=== PATIENT | female | born 1945 | race Caucasian/White ===

== ENCOUNTER 2018-07-29 12:31 | Emergency (ER) | payer OTHER, MEDICARE ==
[2018-07-29 14:08] LABS: Absolute Lymphocytes (CBC) 1.3 K/uL (0.7-4.9); Absolute Monocytes 0.4 K/uL (0.1-1.3); Absolute Neutrophil 7.1 K/uL (1.8-8.0); Basophils % 0.6 % (0-1.3); Eosinophils % 1.6 % (0-4.4); Hematocrit 36.5 % (36.0-45.0); Lymphocytes % 14.2 % (15.3-44.8); MPV 9.1 fL (7.6-11.3); Monocytes % 4.7 % (3.3-12.3); RBC Red Blood Cell Count 4.06 M/uL (3.86-4.86)
[2018-07-29 14:22] LABS: Potassium 3.8 mmol/L (3.5-5.1)
--- NOTE | 2018-07-29 14:25 | RAD REPORT ---
EXAM DESCRIPTION: RAD - Foot Left 3 View - 07/29/2018 1:45 pm CLINICAL HISTORY: Left Foot pain status post fall FINDINGS: No fracture or dislocation is seen. Large calcaneal spurs are present
--- NOTE | 2018-07-29 15:48 | RAD REPORT ---
EXAM DESCRIPTION: CT - Head C Spine Cap Lowell Bai - 07/29/2018 2:49 pm CLINICAL HISTORY: Trauma, head and neck injury. Chest, abdomen and pelvis pain. Headache;Lower back pain COMPARISON: No comparisons TECHNIQUE: CT head without contrast. CT cervical spine without contrast with coronal and sagittal reformatted images. CT chest, abdomen and pelvis with IV contrast (approximately 100 mL nonionic IV contrast) with luevano l and sagittal reformatted images of the spine. All CT scans are performed using dose optimization technique as appropriate and may include automated exposure control or mA/KV adjustment according to patient size. FINDINGS: CT HEAD WITHOUT CONTRAST: No intracranial hemorrhage, hydrocephalus or extra-axial fluid collection. Mild generalized brain atr ophy. No areas of brain edema or midline shift. The paranasal sinuses and mastoids are clear. The calvarium is intact. CT CERVICAL SPINE WITHOUT CONTRAST: No fracture or subluxation. The prevertebral soft tissues are normal in thickness. CT CHEST, ABDOMEN, PELVIS WITH CONTRAST: The lungs are clear.No pneumothorax or pericardial/pleural fluid. No evidence of intra-abdominal visceral injury, free fluid or free air. Cholecystectomy clips. Sigmoid diverticulosis coli without diverticulitis. No fractures. Lumbar degenerative changes are present. Mild degenerative anterolisthesis of L4 on 5. IMPRESSION: Negative for acute traumatic findings.
[2018-07-29] MEDS ORDERED: KETOROLAC 30 MG/ML INJ ONE (15:49)
--- NOTE | 2018-07-29 15:56 | EDPHYS ---
Physician Documentation [facility] Name: Kary Lance Age: 73 yrs Sex: Female : 1945 Arrival Date: 07/29/2018 Time: 12:33 Bed 28 Private MD: Delio Fernandez V ED Physician Nazario Burnett HPI: 07/29 13:54 This 73 yrs old Female presents to ER via Wheelchair with complaints of Left pm1 Foot Injury. 13:54 The patient presents with pain, swelling. The complaints affect the dorsum of left pm1 foot. Context: The problem was sustained at home, resulted from the patient falling, ladder, the patient can fully bear weight, the patient is able to ambulate, Problem is a result from a previous injury: No. Onset: The symptoms/episode began/occurred this morning. Modifying factors: The symptoms are alleviated by elevating leg, the symptoms are aggravated by weight bearing. Associated signs and symptoms: Pertinent positives: swelling, of the dorsum of left foot, Pertinent negatives calf tenderness. Treatment prior to arrival includes: no previous treatment. Severity of symptoms: in the emergency department the symptoms are actually worse. The patient has not experienced similar symptoms in the past. The patient has not recently seen a physician. Patient was coming down a ladder and she was about 4 feet off the ground. The ladder moved and she fell, landing flat on her back on wooden floor in the house. Patient with pain to back of head and low back. Her main complaint is swelling and pain to left foot. No LOC, No neck pain. patient was able to walk after the fall. However throughout the day the pain and swelling to her left foot got worse. Historical: - Allergies: 13:09 No Known Allergies; aj1 - Home Meds: 13:15 amitriptyline 10 mg Oral tab [Active]; levothyroxine 125 mcg tab 1 tab once daily ca1 [Active]; oxybutynin chloride 10mg ER Oral tab 1 tab once daily [Active]; Metoprolol ER 50mg [Active]; atorvastatin 10 mg oral tab [Active]; colestipol 1 gram oral tab [Active]; losartan-hydrochlorothiazide 100-25 mg oral tab [Active]; naltrexone oral oral [Active]; - PMHx: 13:09 High Cholesterol; Hypertension; overactive bladder; aj1 - PSHx: 13:15 Heart stents; ca1 - Immunization history:: Flu vaccine is up to date. - Social history:: Smoking status: Patient/guardian denies using tobacco. - Ebola Screening: : Patient denies travel to an Ebola-affected area in the 21 days before illness onset. ROS: 13:54 Constitutional: Negative for fever, chills, and weight loss, Eyes: Negative for injury, pm1 pain, redness, and discharge, ENT: Negative for injury, pain, and discharge, Neck: Negative for injury, pain, and swelling, Cardiovascular: Negative for chest pain, palpitations, and edema, Respiratory: Negative for shortness of breath, cough, wheezing, and pleuritic chest pain, Abdomen/GI: Negative for abdominal pain, nausea, vomiting, diarrhea, and constipation, : Negative for injury, bleeding, discharge, and swelling, Skin: Negative for injury, rash, and discoloration. 13:54 Back: Positive for of the low back area, pain. 13:54 MS/extremity: Positive for pain, swelling, of the dorsum of left foot. 13:54 Neuro: Positive for headache, Negative for loss of consciousness. Exam: 13:54 Constitutional: This is a well developed, well nourished patient who is awake, alert, pm1 and in no acute distress. Head/Face: Normocephalic, atraumatic. Eyes: Pupils equal round and reactive to light, extra-ocular motions intact. Lids and lashes normal. Conjunctiva and sclera are non-icteric and not injected. Cornea within normal limits. Periorbital areas with no swelling, redness, or edema. ENT: Nares patent. No nasal discharge, no septal abnormalities noted. Tympanic membranes are normal and external auditory canals are clear. Oropharynx with no redness, swelling, or masses, exudates, or evidence of obstruction, uvula midline. Mucous membranes moist. Neck: Trachea midline, no thyromegaly or masses palpated, and no cervical lymphadenopathy. Supple, full range of motion without nuchal rigidity, or vertebral point tenderness. No Meningismus. Chest/axilla: Normal chest wall appearance and motion. Nontender with no deformity. No lesions are appreciated. Cardiovascular: Regular rate and rhythm with a normal S1 and S2. No gallops, murmurs, or rubs. Normal PMI, no JVD. No pulse deficits. Respiratory: Lungs have equal breath sounds bilaterally, clear to auscultation and percussion. No rales, rhonchi or wheezes noted. No increased work of breathing, no retractions or nasal flaring. Abdomen/GI: Soft, non-tender, with normal bowel sounds. No distension or tympany. No guarding or rebound. No evidence of tenderness throughout. Back: No spinal tenderness. No costovertebral tenderness. Full range of motion. No tenderness to whole back with palpation Skin: Warm, dry with normal turgor. Normal color with no rashes, no lesions, and no evidence of cellulitis. 13:54 Musculoskeletal/extremity: Extremities: grossly normal except: noted in the dorsum of left foot: ecchymosis, swelling, tenderness. Vital Signs: 13:09 BP 149 / 49; Pulse 68; Resp 18; Temp 97.6; Pulse Ox 97% on R/A; Weight 99.79 kg (R); aj1 Height 5 ft. 2 in. (157.48 cm) (R); 14:15 BP 153 / 67; Pulse 64; Resp 18 S; Pulse Ox 100% on R/A; ca1 15:25 BP 208 / 75; Pulse 65; Resp 19 S; Pulse Ox 98% on R/A; ca1 16:00 BP 198 / 96; Pulse 66; Resp 18 S; Pulse Ox 99% on R/A; ca1 16:43 BP 116 / 69; Pulse 67; Resp 18 S; Pulse Ox 97% on R/A; ca1 13:09 Body Mass Index 40.24 (99.79 kg, 157.48 cm) [facility] MDM: 13:32 Patient medically screened. pm1 13:35 ED course: Patient was 4 foot off the ground and landed on her back and hit her head on pm1 a wooden floor. Patient's main complaint is her left foot but possible distracting injury, therefore I will order CT traumagram. 13:36 ED course: Patient refused pain medications. pm1 15:53 Data reviewed: vital signs. Data interpreted: Pulse oximetry: on room air is 98 %. pm1 Interpretation: normal. Counseling: I had a detailed discussion with the patient and/or guardian regarding: the historical points, exam findings, and any diagnostic results supporting the discharge/admit diagnosis, lab results, radiology results, the need for outpatient follow up, to return to the emergency department if symptoms worsen or persist or if there are any questions or concerns that arise at home. 07/29 13:32 Order name: Basic Metabolic Panel; Complete Time: 14:25 pm1 07/29 13:32 Order name: CBC with Diff; Complete Time: 14:09 pm1 07/29 13:32 Order name: Foot Left 3 View XRAY; Complete Time: 14:27 pm1 07/29 13:32 Order name: CT Traumagram (Head C Spine CAP W Con); Complete Time: 15:52 pm1 07/29 13:32 Order name: Creatinine for Radiology; Complete Time: 14:25 pm1 07/29 13:32 Order name: Type And Screen; Complete Time: 14:56 pm1 07/29 13:32 Order name: Ice pack; Complete Time: 14:01 pm1 07/29 13:32 Order name: Labs collected and sent; Complete Time: 13:59 pm1 07/29 15:36 Order name: Walking boot; Complete Time: 15:40 pm1 Administered Medications: 15:37 Drug: TORadol 30 mg Route: IM; Site: left deltoid; ca1 16:15 Drug: [place] 10 mg-325 mg 1 tabs Route: PO; ca1 Disposition: 07/29/18 15:54 Discharged to Home. Impression: Contusion of left foot, Superficial injury of head, Low back pain. - Condition is Stable. - Discharge Instructions: Back Pain, Adult, Foot Contusion, Head Injury, Adult, How to Use a Walker, Walking Boot. - Prescriptions for Tramadol 50 mg Oral Tablet - take 1 tablet by ORAL route every 8 hours as needed; 15 tablet. - Work release form, Medication Reconciliation Form, Thank You Letter, Antibiotic Education, Prescription Opioid Use form. - Follow up: Emergency Department; When: As needed; Reason: Worsening of condition. Follow up: Private Physician; When: 2 - 3 days; Reason: Recheck today's complaints, Continuance of care, Re-evaluation by your physician. - Problem is new. - Symptoms have improved. Addendum: 08/03/2018 10:34 Co-signature as Attending Physician, Nazario Burnett MD I agree with the assessment and k dr plan of care. Signatures: Dispatcher [employer] EDKimberly Gotti RN RN aj1 Nazario Burnett MD MD kdr Miguel Ledesma NP [employer]ENDER HELPER pm1 Michelle Weiss RN RN ca1 Corrections: (The following items were deleted from the chart) 07/29 16:57 15:54 07/29/2018 15:54 Discharged to Home. Impression: Contusion of left foot; ca1 Superficial injury of head; Low back pain. Condition is Stable. Forms are Medication Reconciliation Form, Thank You Letter, Antibiotic Education, Prescription Opioid Use. Follow up: Emergency Department; When: As needed; Reason: Worsening of condition. Follow up: Private Physician; When: 2 - 3 days; Reason: Recheck today's complaints, Continuance of care, Re-evaluation by your physician. Problem is new. Symptoms have improved. pm1
--- NOTE | 2018-07-29 15:56 | ER ---
Nurse's Notes [facility] Name: Kary Lance Age: 73 yrs Sex: Female : 1945 Arrival Date: 07/29/2018 Time: 12:33 Bed 28 Private MD: Delio Fernandez V Diagnosis: Contusion of left foot;Superficial injury of head;Low back pain Presentation: 07/29 13:07 Presenting complaint: Patient states: "I fell off a ladder and landed on my back and aj1 now my left foot hurts and it swollen" Patient reports that she fell approximately 6 ft, but denies back pain. Reports that her main concern is her foot. Denies LOC, vomiting. Transition of care: patient was not received from another setting of care. Onset of symptoms was July 29, 2018 at 11:30. Risk Assessment: Do you want to hurt yourself or someone else? Patient reports no desire to harm self or others. Initial Sepsis Screen: Does the patient meet any 2 criteria? No. Patient's initial sepsis screen is negative. Does the patient have a suspected source of infection? No. Patient's initial sepsis screen is negative. Care prior to arrival: None. 13:07 Method Of Arrival: Wheelchair aj1 13:07 Acuity: LEE 3 aj1 Triage Assessment: 13:09 General: Appears in no apparent distress. uncomfortable, Behavior is calm, cooperative, aj1 appropriate for age. Pain: Complains of pain in left foot Pain currently is 9 out of 10 on a pain scale. Neuro: Level of Consciousness is awake, alert, obeys commands, Oriented to person, place, time, situation. Derm: Bruising that is dark purple, on left foot. Musculoskeletal: Range of motion: limited in left ankle Swelling present in left foot. 13:09 Injury Description: Bruise sustained to left ankle and left foot is green, was ca1 sustained 30-60 minutes ago. Historical: - Allergies: 13:09 No Known Allergies; aj1 - Home Meds: 13:15 amitriptyline 10 mg Oral tab [Active]; levothyroxine 125 mcg tab 1 tab once daily ca1 [Active]; oxybutynin chloride 10mg ER Oral tab 1 tab once daily [Active]; Metoprolol ER 50mg [Active]; atorvastatin 10 mg oral tab [Active]; colestipol 1 gram oral tab [Active]; losartan-hydrochlorothiazide 100-25 mg oral tab [Active]; naltrexone oral oral [Active]; - PMHx: 13:09 High Cholesterol; Hypertension; overactive bladder; aj1 - PSHx: 13:15 Heart stents; ca1 - Immunization history:: Flu vaccine is up to date. - Social history:: Smoking status: Patient/guardian denies using tobacco. - Ebola Screening: : Patient denies travel to an Ebola-affected area in the 21 days before illness onset. Screenin:16 Abuse screen: Denies threats or abuse. Denies injuries from another. Nutritional ca1 screening: No deficits noted. Tuberculosis screening: No symptoms or risk factors identified. Fall Risk Fall in past 12 months (25 points). IV access (20 points). Assessment: 13:16 General: Appears in no apparent distress. comfortable, Behavior is calm, cooperative, ca1 appropriate for age. Pain: Complains of pain in left ankle and left foot Pain does not radiate. Pain currently is 10 out of 10 on a pain scale. Pain began 1 hour ago. Neuro: Level of Consciousness is awake, alert, obeys commands, Oriented to person, place, time, situation. Cardiovascular: Heart tones S1 S2 present Capillary refill < 3 seconds Patient's skin is warm and dry. Respiratory: Airway is patent Respiratory effort is even, unlabored, Respiratory pattern is regular, symmetrical, Breath sounds are clear bilaterally. GI: Abdomen is round non-distended, Bowel sounds present X 4 quads. Abd is soft and non tender X 4 quads. : No deficits noted. No signs and/or symptoms were reported regarding the genitourinary system. EENT: No deficits noted. No signs and/or symptoms were reported regarding the EENT system. Derm: Skin is intact, is healthy with good turgor, Skin is pink, warm \\T\\ dry. Bruising that is dark purple, on left foot. Musculoskeletal: Circulation, motion, and sensation intact. Capillary refill < 3 seconds, Swelling present in left foot. 14:15 Reassessment: Patient appears in no apparent distress at this time. Patient and/or ca1 family updated on plan of care and expected duration. Pain level reassessed. Patient is alert, oriented x 3, equal unlabored respirations, skin warm/dry/pink. 15:21 Reassessment: Patient appears in no apparent distress at this time. Patient and/or ca1 family updated on plan of care and expected duration. Pain level reassessed. Patient is alert, oriented x 3, equal unlabored respirations, skin warm/dry/pink. 15:45 Reassessment: Pt ambulated to the restroom with the walking boot and a walker. Pt ca1 tolerated procedure well. 16:08 Reassessment: Patient appears in no apparent distress at this time. Patient is alert, ca1 oriented x 3, equal unlabored respirations, skin warm/dry/pink. Pt blood pressure is elevated. Pt still in pain at 10/10 on pain scale. Notified Provider. 16:08 Reassessment: Provider at bedside to discuss pain management options on narcotic ca1 analgesics or non-narcotics. 16:43 Reassessment: Patient appears in no apparent distress at this time. Patient is alert, ca1 oriented x 3, equal unlabored respirations, skin warm/dry/pink. Patient states feeling better. Vital Signs: 13:09 BP 149 / 49; Pulse 68; Resp 18; Temp 97.6; Pulse Ox 97% on R/A; Weight 99.79 kg (R); aj1 Height 5 ft. 2 in. (157.48 cm) (R); 14:15 BP 153 / 67; Pulse 64; Resp 18 S; Pulse Ox 100% on R/A; ca1 15:25 BP 208 / 75; Pulse 65; Resp 19 S; Pulse Ox 98% on R/A; ca1 16:00 BP 198 / 96; Pulse 66; Resp 18 S; Pulse Ox 99% on R/A; ca1 16:43 BP 116 / 69; Pulse 67; Resp 18 S; Pulse Ox 97% on R/A; ca1 13:09 Body Mass Index 40.24 (99.79 kg, 157.48 cm) aj1 ED Course: 12:33 Patient arrived in ED. as 12:33 Delio Fernandez MD is Private Physician. as 13:09 Triage completed. aj1 13:09 Arm band placed on. aj1 13:14 Miguel Ledesma NP is PHCP. pm1 13:14 Nazario Burnett MD is Attending Physician. pm1 13:16 Patient has correct armband on for positive identification. Placed in gown. Bed in low ca1 position. Call light in reach. Side rails up X 1. Pulse ox on. NIBP on. Warm blanket given. 13:46 Foot Left 3 View XRAY In Process Unspecified. EDMS 13:59 Initial lab(s) drawn, by me, sent to lab. Inserted saline lock: 20 gauge in left lt1 antecubital area, using aseptic technique. 14:04 Basic Metabolic Panel Sent. lt1 14:04 CBC with Diff Sent. lt1 14:11 Michelle Weiss, RN is Primary Nurse. ca1 14:42 CT completed. Patient tolerated procedure well. Patient moved to CT via stretcher. jg6 Patient moved back from CT. 14:49 CT Traumagram (Head C Spine CAP W Con) In Process Unspecified. EDMS 15:45 walking boot by Arianna Wiggins [facility]. ca1 16:50 IV discontinued, intact, bleeding controlled, No redness/swelling at site. Pressure ca1 dressing applied. 16:56 No provider procedures requiring assistance completed. ca1 Administered Medications: 15:37 Drug: TORadol 30 mg Route: IM; Site: left deltoid; ca1 16:15 Drug: [place] 10 mg-325 mg 1 tabs Route: PO; ca1 Outcome: 15:54 Discharge ordered by MD. pm1 16:55 Discharged to home via wheelchair. ca1 16:55 Discharged to home via wheelchair, with significant other. 16:55 Condition: stable 16:55 Discharge instructions given to patient, Instructed on discharge instructions, follow up and referral plans. medication usage, Demonstrated understanding of instructions, follow-up care, medications, Prescriptions given X 1. 16:57 Patient left the ED. ca1 Signatures: Dispatcher [employer] EDMS Kimberly Michel, RN RN Renée Meyer Patrick, [employer] H[employer]ER pm1 Katia Bañuelos jg6 Michelle Weiss, RN RN ca1 Arianna Gómez ltKaleigh
[2018-07-29] MEDS ORDERED: HYDROCODONE/APAP 10/325 TAB ONE (16:27)
[2018-07-29 17:56] VITALS: TEMP 97.6
[2018-07-29 18:01] VITALS: BP 116/69; O2SAT 97
== END 2018-07-29 16:57 | disposition home or self-care (01) ==
LOC: ER 12:31
DX: S90.32XA Contusion of left foot, initial encounter (principal); S00.90XA Unspecified superficial injury of unspecified part of head, initial encounter; W11.XXXA Fall on and from ladder, initial encounter; M54.5 Low back pain; I10 Essential (primary) hypertension; E78.00 Pure hypercholesterolemia, unspecified
CPT/HCPCS: 85025; 80048; 36415; 86900; 86850; 86901; 70450; 72125; 71260; 74177; 73630; 96372; 99285; Q9967

== ENCOUNTER 2018-11-17 11:06 | Emergency (ER) | payer OTHER, MEDICARE ==
--- NOTE | 2018-11-17 12:55 | RAD REPORT ---
EXAM DESCRIPTION: CT - Head Brain Wo Cont - 11/17/2018 12:39 pm CLINICAL HISTORY: Headache COMPARISON: July 2018 TECHNIQUE: Computed axial tomography of the head was obtained. IV contrast was not requested. All CT scans are performed using dose optimization technique as appropriate and may include automated exposure control or mA/KV adjustment according to patient size. FINDINGS: An intracranial bleed is not seen . The ventricles are normal in caliber. No extra-axial fluid collection is noted. Fluid within the sinuses/ mastoids is not seen. IMPRESSION: No acute intracranial abnormality is seen. If patient's symptoms persist MRI of the bra in would be recommended.
[2018-11-17 13:29] LABS: Absolute Lymphocytes (CBC) 2.1 K/uL (0.7-4.9); Basophils % 0.9 % (0-1.3); Hematocrit 37.9 % (36.0-45.0); Lymphocytes % 36.4 % (15.3-44.8); MPV 9.9 fL (7.6-11.3); RBC Red Blood Cell Count 4.26 M/uL (3.86-4.86)
--- NOTE | 2018-11-17 16:25 | RAD REPORT ---
EXAM DESCRIPTION: USCarotid Artery Bilateral11/17/2018 3:36 pm CLINICAL HISTORY: Headache/numbness COMPARISON: None FINDINGS: The velocity of the right internal carotid artery equals 148 cm/sec. The right ICA/CCA rat io 3.1 The velocity of the left internal carotid artery equals 154 cm/sec. The left ICA/CCA ratio 2.7 Mild plaque is present within the carotid arteries. Internal carotid arteries are tortuous The vertebral arteries demonstrate antegrade flow IMPRESSION: Mild plaque within the carotid arteries without evidence of a hemodynamically significan t stenosis Tortuous internal carotid arteries NASCET criteria used. Mild 0-49% stenosis Moderate 50-69% stenosis Severe 70-99% stenosis
--- NOTE | 2018-11-17 16:47 | ER ---
Nurse's Notes [facility] Name: Kary Lance Age: 73 yrs Sex: Female : 1945 Arrival Date: 11/17/2018 Time: 11:08 Bed 5 Private MD: Delio Fernandez V Diagnosis: Headache Presentation: 11/17 11:16 Presenting complaint: Headache on top of head and behind both eyes upon waking today. hb Pt reports frequent headaches since fall from ladder 4 months ago. Denies weakness/numbness/dizziness. VAN Negative. Transition of care: patient was not received from another setting of care. 11:16 Method Of Arrival: Ambulatory hb 11:16 Acuity: LEE 3 hb 11:18 Onset of symptoms was November 17, 2018. Risk Assessment: Do you want to hurt yourself or hb someone else? Patient reports no desire to harm self or others. Initial Sepsis Screen: Does the patient meet any 2 criteria? No. Patient's initial sepsis screen is negative. Does the patient have a suspected source of infection? No. Patient's initial sepsis screen is negative. 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 Historical: - Allergies: 11:20 No Known Allergies; hb - PMHx: 14:35 High Cholesterol; Hypertension; overactive bladder; sg - PSHx: 14:35 Heart stents; sg - Immunization history:: Adult Immunizations up to date. - Social history:: Smoking status: Patient/guardian denies using tobacco. - Ebola Screening: : No symptoms or risks identified at this time. Screenin:55 Abuse screen: Denies threats or abuse. Denies injuries from another. Nutritional sg screening: No deficits noted. Tuberculosis screening: No symptoms or risk factors identified. Never had TB. Fall Risk None identified. Assessment: 11:55 General: Appears in no apparent distress. well groomed, well developed, well nourished. sg Pain: Complains of pain in head, right eye and left eye Quality of pain is described as aching, throbbing. 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 Speech is normal, Facial symmetry appears normal. Cardiovascular: Capillary refill is brisk in bilateral fingers Patient's skin is warm and dry. Chest pain is denied. Respiratory: Airway is patent Respiratory effort is even, unlabored, Respiratory pattern is regular, symmetrical. GI: No deficits noted. Abdomen is round non-distended. : No signs and/or symptoms were reported regarding the genitourinary system. EENT: Sclera/Cornea are clear in right eye and left eye Nares are clear bilaterally Oral mucosa is moist. Throat is clear. Derm: Skin is pink, warm \T\ dry. Musculoskeletal: Circulation, motion, and sensation intact. Range of motion: intact in all extremities. 14:34 Reassessment: pt remains off the unit in ultrasound at this time, will continue to sg monitor. Vital Signs: 11:18 BP 127 / 67; Pulse 48; Resp 16; Temp 97.8; Pulse Ox 100% on R/A; Weight 95.25 kg; hb Height 5 ft. 3 in. (160.02 cm); Pain 5/10; 11:18 Body Mass Index 37.20 (95.25 kg, 160.02 cm) hb ED Course: 11:08 Patient arrived in ED. as 11:09 Delio Fernandez MD is Private Physician. as 11:17 Triage completed. hb 11:20 Arm band placed on. hb 11:55 Patient has correct armband on for positive identification. Bed in low position. Call sg light in reach. Pulse ox on. NIBP on. Warm blanket given. Head of bed elevated. 11:55 No provider procedures requiring assistance completed. sg 11:57 Nazario Burnett MD is Attending Physician. kdr 12:41 CT Head Brain wo Cont In Process Unspecified. EDMS 13:00 Initial lab(s) drawn, by me, sent to lab. Inserted saline lock: 22 gauge in left sg antecubital area, using aseptic technique. Blood collected. 13:43 Zana Wan, MORENO is Primary Nurse. sg 15:09 Carotid Artery Bilateral US In Process Unspecified. EDMS 16:46 Delio Fernandez MD is Referral Physician. kdr Administered Medications: No medications were administered Outcome: 16:46 Discharge ordered by . kdr 16:54 Discharged to home ambulatory, with family. hb 16:54 Condition: stable 16:54 Discharge instructions given to patient, Instructed on discharge instructions, follow up and referral plans. medication usage, Demonstrated understanding of instructions, follow-up care, medications, Prescriptions given X 2. 16:56 Patient left the ED. hb 17:10 Patient left the ED. hb Signatures: Dispatcher [employer] EDMS Zana Wan RN RN Nazario Burnett MD MD kdr Martinez, Amelia as Baxter, Heather, RN RN Corrections: (The following items were deleted from the chart) 11:17 11:16 Presenting complaint: Headache on top of head and behind both eyes upon waking hb today. Pt reports frequent headaches since fall from ladder 3 weeks ago. hb 11:19 11:16 Presenting complaint: Headache on top of head and behind both eyes upon waking hb today. Pt reports frequent headaches since fall from ladder 4 months ago. hb 11:19 11:18 Care prior to arrival: None. hb hb 14:55 11:55 Patient did not have IV access during this emergency room visit. sg sg
--- NOTE | 2018-11-17 16:47 | EDPHYS ---
Physician Documentation [facility] Name: Kary Lance Age: 73 yrs Sex: Female : 1945 Arrival Date: 11/17/2018 Time: 11:08 Bed 5 Private MD: Delio Fernandez V ED Physician Nazario Burnett HPI: 11/17 16:47 This 73 yrs old Female presents to ER via Ambulatory with complaints of Eye kdr Pain, Headache. 16:47 The patient is experiencing Intermittent Headache and "squiggly" line in vision. Onset: kdr The symptoms/episode began/occurred suddenly, 4 month(s) ago. Duration: the symptoms are intermittent, last a few minutes. Aggravated by nothing. Alleviated by nothing. Associated signs and symptoms: Pertinent positives: Apparent scotomas . Patient wears glasses. Severity of symptoms: At their worst the symptoms were mild in the emergency department the symptoms have resolved. The patient has experienced similar episodes in the past, multiple times. The patient has not recently seen a physician. Historical: - Allergies: 11:20 No Known Allergies; hb - PMHx: 14:35 High Cholesterol; Hypertension; overactive bladder; sg - PSHx: 14:35 Heart stents; sg - Immunization history:: Adult Immunizations up to date. - Social history:: Smoking status: Patient/guardian denies using tobacco. - Ebola Screening: : No symptoms or risks identified at this time. ROS: 16:47 Constitutional: Negative for fever, chills, and weight loss, Eyes: Negative for injury, kdr pain, redness, and discharge, ENT: Negative for injury, pain, and discharge, Neck: Negative for injury, pain, and swelling, Cardiovascular: Negative for chest pain, palpitations, and edema, Respiratory: Negative for shortness of breath, cough, wheezing, and pleuritic chest pain, Abdomen/GI: Negative for abdominal pain, nausea, vomiting, diarrhea, and constipation, Back: Negative for injury and pain, : Negative for injury, bleeding, discharge, and swelling, MS/Extremity: Negative for injury and deformity, Skin: Negative for injury, rash, and discoloration, Psych: Negative for depression, anxiety, suicide ideation, homicidal ideation, and hallucinations, Allergy/Immunology: Negative for hives, rash, and allergies, Endocrine: Negative for neck swelling, polydipsia, polyuria, polyphagia, and marked weight changes. 16:47 Neuro: Positive for headache, visual changes, Negative for altered mental status, dizziness, gait disturbance, seizure activity, speech changes, syncope, near syncope, tingling, tinnitus, tremor, visual changes. Exam: 16:47 Constitutional: This is a well developed, well nourished patient who is awake, alert, kdr and in no acute distress. Head/Face: Normocephalic, atraumatic. Eyes: Pupils equal round and reactive to light, extra-ocular motions intact. Lids and lashes normal. Conjunctiva and sclera are non-icteric and not injected. Cornea within normal limits. Periorbital areas with no swelling, redness, or edema. Neck: Trachea midline, no thyromegaly or masses palpated, and no cervical lymphadenopathy. Supple, full range of motion without nuchal rigidity, or vertebral point tenderness. No Meningismus. Chest/axilla: Normal chest wall appearance and motion. Nontender with no deformity. No lesions are appreciated. Cardiovascular: Regular rate and rhythm with a normal S1 and S2. No gallops, murmurs, or rubs. Normal PMI, no JVD. No pulse deficits. Respiratory: Lungs have equal breath sounds bilaterally, clear to auscultation and percussion. No rales, rhonchi or wheezes noted. No increased work of breathing, no retractions or nasal flaring. Abdomen/GI: Soft, non-tender, with normal bowel sounds. No distension or tympany. No guarding or rebound. No evidence of tenderness throughout. Back: No spinal tenderness. No costovertebral tenderness. Full range of motion. Skin: Warm, dry with normal turgor. Normal color with no rashes, no lesions, and no evidence of cellulitis. MS/ Extremity: Pulses equal, no cyanosis. Neurovascular intact. Full, normal range of motion. Neuro: Awake and alert, GCS 15, oriented to person, place, time, and situation. Cranial nerves II-XII grossly intact. Motor strength 5/5 in all extremities. Sensory grossly intact. Cerebellar exam normal. Normal gait. Psych: Awake, alert, with orientation to person, place and time. Behavior, mood, and affect are within normal limits. Vital Signs: 11:18 BP 127 / 67; Pulse 48; Resp 16; Temp 97.8; Pulse Ox 100% on R/A; Weight 95.25 kg; hb Height 5 ft. 3 in. (160.02 cm); Pain 5/10; 11:18 Body Mass Index 37.20 (95.25 kg, 160.02 cm) hb MDM: 16:46 Patient medically screened. kdr 16:47 Data reviewed: vital signs, nurses notes, lab test result(s), radiologic studies. kdr Counseling: I had a detailed discussion with the patient and/or guardian regarding: the historical points, exam findings, and any diagnostic results supporting the discharge/admit diagnosis, lab results, radiology results, the need for outpatient follow up. 11/17 12:12 Order name: CBC with Diff; Complete Time: 13:32 kdr 11/17 12:12 Order name: Chem 7; Complete Time: 15:34 kdr 11/17 12:12 Order name: CT Head Brain wo Cont; Complete Time: 13:32 kdr 11/17 13:36 Order name: Carotid Artery Bilateral US; Complete Time: 16:44 kdr Administered Medications: No medications were administered Disposition: 11/17/18 16:46 Discharged to Home. Impression: Headache. - Condition is Stable. - Discharge Instructions: General Headache Without Cause. - Medication Reconciliation Form, Thank You Letter form. - Follow up: Delio Fernandez MD; When: 2 - 3 days; Reason: If symptoms return, Further diagnostic work-up, Recheck today's complaints, Continuance of care, Re-evaluation by your physician. - Problem is an ongoing problem. - Symptoms have improved. Signatures: Dispatcher [employer] EDTN Zana Wan RN RN Nazario Burnett MD MD [facility] Purnima Ch RN RN hb Corrections: (The following items were deleted from the chart) 16:56 16:46 11/17/2018 16:46 Discharged to Home. Impression: Headache. Condition is Stable. hb Forms are Medication Reconciliation Form, Thank You Letter, Antibiotic Education, Prescription Opioid Use. Follow up: Delio Fernandez; When: 2 - 3 days; Reason: If symptoms return, Further diagnostic work-up, Recheck today's complaints, Continuance of care, Re-evaluation by your physician. Problem is an ongoing problem. Symptoms have improved. kdr 17:10 16:56 11/17/2018 16:46 Discharged to Home. Impression: Headache. Condition is Stable. hb Discharge Instructions: General Headache Without Cause. Forms are Medication Reconciliation Form, Thank You Letter. Follow up: Delio Fernandez; When: 2 - 3 days; Reason: If symptoms return, Further diagnostic work-up, Recheck today's complaints, Continuance of care, Re-evaluation by your physician. Problem is an ongoing problem. Symptoms have improved. hb
[2018-11-17 17:43] VITALS: BP 127/67; TEMP 97.8; O2SAT 100
== END 2018-11-17 17:10 | disposition home or self-care (01) ==
LOC: ER 11:06
DX: R51 Headache (principal); I10 Essential (primary) hypertension; Z95.818 Presence of other cardiac implants and grafts
CPT/HCPCS: 36415; 70450; 80048; 85025; 93880

== ENCOUNTER 2019-04-08 14:52 | Emergency (ER) | payer MEDICARE, OTHER ==
[2019-04-08] MEDS ORDERED: ACETAMINOPHEN 500 MG TAB ONE (15:47)
--- NOTE | 2019-04-08 16:20 | RAD REPORT ---
EXAM DESCRIPTION: RAD - Knee Right 3 View - 04/08/2019 4:14 pm CLINICAL HISTORY: Right knee pain status post injury FINDINGS: No fracture or dislocation is seen. Osteoarthritis medial compartment
--- NOTE | 2019-04-08 16:22 | ER ---
Nurse's Notes [facility] Name: Kary Lance Age: 73 yrs Sex: Female : 1945 Arrival Date: 04/08/2019 Time: 14:53 Bed 12 Private MD: Delio Fernandez V Diagnosis: Contusion of right knee;Fall on same level from slipping, tripping and stumbling Presentation: 04/08 15:00 Presenting complaint: Patient states: Shoe got caught on floor strip causing patient to ss fall and fall onto R knee. Pt denies pain at this time, but manager commission wants to get her checked out. Transition of care: patient was not received from another setting of care. Onset of symptoms was April 08, 2019. Risk Assessment: Do you want to hurt yourself or someone else? Patient reports no desire to harm self or others. Initial Sepsis Screen: Does the patient meet any 2 criteria? No. Patient's initial sepsis screen is negative. Does the patient have a suspected source of infection? No. Patient's initial sepsis screen is negative. Care prior to arrival: None. 15:00 Method Of Arrival: Wheelchair ss 15:00 Acuity: LEE 4 ss Historical: - Allergies: 15:01 No Known Allergies; ss - PMHx: 15:01 High Cholesterol; Hypertension; overactive bladder; ss - PSHx: 15:01 Heart stents; ss - Immunization history:: Adult Immunizations up to date. - Social history:: Smoking status: Patient/guardian denies using tobacco. - Ebola Screening: : Patient denies exposure to infectious person Patient denies travel to an Ebola-affected area in the 21 days before illness onset. Screenin:11 Abuse screen: Denies threats or abuse. Denies injuries from another. Nutritional rv screening: No deficits noted. Tuberculosis screening: No symptoms or risk factors identified. Fall Risk None identified. Assessment: 15:10 General: Appears in no apparent distress. Behavior is calm, cooperative. Pain: Denies rv pain. Neuro: Level of Consciousness is awake, alert, obeys commands, Oriented to person, place, time, situation. Musculoskeletal: Range of motion: intact in all extremities, Swelling absent. Injury Description: fall. Vital Signs: 15:01 BP 139 / 75; Pulse 59; Resp 15; Temp 98.2(TE); Pulse Ox 98% on R/A; Weight 97.52 kg; Height 5 ft. 3 in. (160.02 cm); Pain 0/10; 16:42 BP 134 / 74; Pulse 60; Resp 16; Pulse Ox 98% on R/A; rv 15:01 Body Mass Index 38.09 (97.52 kg, 160.02 cm) ED Course: 14:53 Patient arrived in ED. rg4 14:53 Delio Fernandez MD is Private Physician. rg4 15:01 Triage completed. ss 15:01 Arm band placed on right wrist. ss 15:03 Randell Loving PA is PHCP. cp 15:03 Nazario Burnett MD is Attending Physician. cp 15:05 Rob Quigley, MORENO is Primary Nurse. rv 15:11 Patient has correct armband on for positive identification. Bed in low position. Call rv light in reach. Adult w/ patient. Pulse ox on. NIBP on. 16:21 Vinicio Fernando MD is Referral Physician. cp 16:42 No provider procedures requiring assistance completed. Patient did not have IV access rv during this emergency room visit. Administered Medications: 15:46 Drug: Tylenol 1000 mg Route: PO; rv 16:41 Follow up: Response: No adverse reaction rv Outcome: 16:21 Discharge ordered by . cp 16:43 Discharged to home ambulatory. rv 16:43 Condition: good 16:43 Discharge instructions given to patient, Instructed on discharge instructions, follow up and referral plans. medication usage, Demonstrated understanding of instructions, follow-up care, medications, Prescriptions given X 1. 16:43 Patient left the ED. rv Signatures: Maria E Raines, RN RN Randell Loving PA PA Aixa Shaikh rg4 Rob Quigley, MORENO RN rv
--- NOTE | 2019-04-08 16:23 | EDPHYS ---
Physician Documentation [facility] Name: Kary Lance Age: 73 yrs Sex: Female : 1945 Arrival Date: 04/08/2019 Time: 14:53 Bed 12 Private MD: Delio Fernandez V ED Physician Nazario Burnett HPI: 04/08 15:28 This 73 yrs old Female presents to ER via Wheelchair with complaints of Fall cp Injury. 15:28 Details of fall: The patient fell from an upright position, while walking. Onset: The cp symptoms/episode began/occurred today. Associated injuries: The patient sustained right knee, contusion. Historical: - Allergies: 15:01 No Known Allergies; ss - PMHx: 15:01 High Cholesterol; Hypertension; overactive bladder; ss - PSHx: 15:01 Heart stents; ss - Immunization history:: Adult Immunizations up to date. - Social history:: Smoking status: Patient/guardian denies using tobacco. - Ebola Screening: : Patient denies exposure to infectious person Patient denies travel to an Ebola-affected area in the 21 days before illness onset. ROS: 15:29 Eyes: Negative for injury, pain, redness, and discharge. cp 15:29 Constitutional: Negative for chills, fever, poor PO intake. 15:29 ENT: Negative for ear pain, sore throat. 15:29 Cardiovascular: Negative for chest pain, edema, palpitations. 15:29 Respiratory: Negative for cough, shortness of breath, wheezing. 15:29 Abdomen/GI: Negative for abdominal pain, vomiting, diarrhea, constipation. 15:29 MS/extremity: Positive for pain, swelling, tenderness, of the right knee, Negative for decreased range of motion, deformity, paresthesias. 15:29 Skin: Negative for laceration(s), rash. 15:29 Neuro: Negative for altered mental status, headache, syncope, weakness. 15:29 All other systems are negative. Exam: 15:31 Head/Face: Normocephalic, atraumatic. cp 15:31 Constitutional: The patient appears in no acute distress, alert, awake, non-toxic, well developed, well nourished. 15:31 Eyes: Periorbital structures: appear normal, Conjunctiva: normal, Lids and lashes: appear normal, bilaterally. 15:31 ENT: External ear(s): are unremarkable, Nose: is normal, Mouth: is normal, Voice: is normal. 15:31 Chest/axilla: Inspection: normal. 15:31 Cardiovascular: Rate: bradycardic, actual rate is 59 bpm. 15:31 Respiratory: the patient does not display signs of respiratory distress, Respirations: normal, no use of accessory muscles, no retractions. 15:31 Abdomen/GI: Inspection: abdomen appears normal. 15:31 Musculoskeletal/extremity: Perfusion: the extremity is normally perfused throughout, Sensation intact. Joints: the right knee displays swelling, tenderness, anterior medial aspect of right knee, Weight bearing: able to fully bear weight. 15:31 Neuro: Orientation: is normal, Mentation: is normal. Vital Signs: 15:01 BP 139 / 75; Pulse 59; Resp 15; Temp 98.2(TE); Pulse Ox 98% on R/A; Weight 97.52 kg; ss Height 5 ft. 3 in. (160.02 cm); Pain 0/10; 16:42 BP 134 / 74; Pulse 60; Resp 16; Pulse Ox 98% on R/A; rv 15:01 Body Mass Index 38.09 (97.52 kg, 160.02 cm) ss MDM: 15:23 Patient medically screened. cp 15:45 Differential diagnosis: contusion, fracture, ligament injury, torn meniscus. cp 16:15 Data reviewed: vital signs, nurses notes, radiologic studies, plain films. Test cp interpretation: by ED physician or midlevel provider: plain radiologic studies, xrays of right knee negative for acute fracture. 16:21 Counseling: I had a detailed discussion with the patient and/or guardian regarding: the cp historical points, exam findings, and any diagnostic results supporting the discharge/admit diagnosis, radiology results, the need for outpatient follow up, a orthopedic surgeon, to return to the emergency department if symptoms worsen or persist or if there are any questions or concerns that arise at home. 04/08 15:35 Order name: XRAY Knee RIGHT 3 view cp 04/08 16:31 Order name: RAD EDMS 04/08 15:35 Order name: Ice pack; Complete Time: 15:36 cp 04/08 16:21 Order name: Audi wrap-joint; Complete Time: 16:37 cp Administered Medications: 15:46 Drug: Tylenol 1000 mg Route: PO; rv 16:41 Follow up: Response: No adverse reaction rv Disposition: 04/08/19 16:21 Discharged to Home. Impression: Contusion of right knee, Fall on same level from slipping, tripping and stumbling. - Condition is Stable. - Discharge Instructions: Contusion, Knee Pain, Form - Excuse from Work, School, or Physical Activity. - Prescriptions for Ibuprofen 800 mg Oral Tablet - take 1 tablet by ORAL route every 8 hours As needed take with food; 30 tablet. - Work release form, Medication Reconciliation Form, Thank You Letter, Antibiotic Education, Prescription Opioid Use form. - Follow up: Vinicio Fernando MD; When: 5 - 6 days; Reason: Recheck today's complaints. - Problem is new. - Symptoms have improved. - Notes: No work and follow-up next 5-7 days with orthopedist Addendum: 04/11/2019 06:59 Co-signature as Attending Physician, Nazario Burnett MD I agree with the assessment and k dr plan of care. Signatures: Dispatcher [employer] EDPA Nazario Burnett MD MD kdr Maria E Raines RN RN ss Randell Loving, CORNELL PA cp Rob Quigley, RN RN rv Corrections: (The following items were deleted from the chart) 04/08 16:43 16:21 04/08/2019 16:21 Discharged to Home. Impression: Contusion of right knee; Fall on rv same level from slipping, tripping and stumbling. Condition is Stable. Forms are Medication Reconciliation Form, Thank You Letter, Antibiotic Education, Prescription Opioid Use. Follow up: Vinicio Fernando; When: 5 - 6 days; Reason: Recheck today's complaints. Problem is new. Symptoms have improved. cp
[2019-04-08 18:11] VITALS: TEMP 98.2; O2SAT 98
[2019-04-08 18:12] VITALS: BP 134/74
== END 2019-04-08 16:43 | disposition home or self-care (01) ==
LOC: ER 14:52
DX: S80.01XA Contusion of right knee, initial encounter (principal); W01.0XXA Fall on same level from slipping, tripping and stumbling without subsequent striking against object, initial encounter; Y93.01 Activity, walking, marching and hiking; Y92.9 Unspecified place or not applicable; Z95.818 Presence of other cardiac implants and grafts; I10 Essential (primary) hypertension
CPT/HCPCS: 99283

== ENCOUNTER 2021-10-22 07:17 | Emergency (ER) | payer OTHER, MEDICARE ==
--- NOTE | 2021-10-22 08:16 | RAD REPORT ---
EXAM DESCRIPTION: CT - Head C Spine Mpr Wo Con - 10/22/2021 8:02 am CLINICAL HISTORY: Head and neck injury status post fall. Head and neck pain COMPARISON: 2017 TECHNIQUE: Computed axial tomography of the head and cervical spine was obtained. Sagittal and coronal reconstruction was performed. All CT scans are performed using dose optimization technique as appropriate and may include automated exposure control or mA/KV adjustment according to patient size. FINDINGS: An intracranial bleed is not seen. The ventricles are normal in caliber. An extra-axial fl uid collection is not noted.Fluid within the visualized sinuses and mastoids is not seen A cervical fracture is not visualized. No dislocation is noted. IMPRESSION: No acute intracranial abnormality is seen. A cervical fracture is not visualized. If the patient continues to have symptoms to suggest intracra nial /spinal cord pathology then MRI would be recommended
--- NOTE | 2021-10-22 08:27 | RAD REPORT ---
EXAM DESCRIPTION: Ribs Right - 10/22/2021 8:12 am CLINICAL HISTORY: Right rib pain FINDINGS: No fracture is seen
--- NOTE | 2021-10-22 10:17 | ER ---
Nurse's Notes [facility] [place] Name: Kary Lance Age: 76 yrs Sex: Female : 1945 Arrival Date: 10/22/2021 Time: 07:19 Bed Waiting Private MD: Delio Fernandez V Diagnosis: Fall on same level, unspecified;contusion face Presentation: 10/22 07:44 Chief complaint: Patient states: Tripped and fell, hit right side of face/eye/glasses, jl7 denies LOC, right hand caught under right breast, reports pain to right ribs under right breast. Coronavirus screen: At this time, the client does not indicate any symptoms associated with coronavirus-19. Ebola Screen: No symptoms or risks identified at this time. Initial Sepsis Screen: Does the patient meet any 2 criteria? No. Patient's initial sepsis screen is negative. Does the patient have a suspected source of infection? No. Patient's initial sepsis screen is negative. Risk Assessment: Do you want to hurt yourself or someone else? Patient reports no desire to harm self or others. Onset of symptoms. 07:44 Method Of Arrival: Ambulatory [facility] 07:44 Acuity: LEE 4 [facility] 07:49 Onset of symptoms was October 22, 2021 at 07:10. [facility] Triage Assessment: 07:50 General: Appears in no apparent distress. uncomfortable, Behavior is calm, cooperative, jl7 appropriate for age. Pain: Complains of pain in anterior aspect of right ribs Pain currently is 5 out of 10 on a pain scale. Historical: - Allergies: 07:50 No Known Allergies; jl7 - Home Meds: 07:50 atorvastatin 10 mg Oral tab [Active]; aspirin 81 mg Oral TbEC [Active]; levothyroxine jl7 125 mcg tab 1 tab once daily [Active]; oxybutynin chloride 10mg ER Oral tab 1 tab once daily [Active]; losartan oral [Active]; - PMHx: 07:50 High Cholesterol; Hypertension; overactive bladder; Hypothyroidism; jl7 - PSHx: 07:50 Total abdominal hysterectomy; jl7 - Immunization history:: Client reports receiving the 2nd dose of the Covid vaccine. - Social history:: Smoking status: Patient denies any tobacco usage or history of. Vital Signs: 07:44 BP 169 / 86; Pulse 51; Resp 17; Temp 97.1; Pulse Ox 100% on R/A; Weight 95.25 kg; jl7 Height 5 ft. 3 in. (160.02 cm); Pain 5/10; 07:44 Body Mass Index 37.20 (95.25 kg, 160.02 cm) jl7 ED Course: 07:19 Patient arrived in ED. mr 07:19 Delio Fernandez MD is Private Physician. mr 07:24 Jarrod Alberto DO is Attending Physician. ms3 07:44 Jim Sanchez, RN is Primary Nurse. jl7 07:48 Triage completed. jl7 07:50 Arm band placed on right wrist. jl7 08:04 Head C Spine Mpr Wo Con In Process Unspecified. EDMS 08:12 XRAY Ribs RIGHT In Process Unspecified. EDMS 10:15 Delio Fernandez MD is Referral Physician. ms3 10:46 No provider procedures requiring assistance completed. Patient did not have IV access jl7 during this emergency room visit. Administered Medications: No medications were administered Outcome: 10:16 Discharge ordered by . ms3 10:46 Discharged to home ambulatory. jl7 10:46 Condition: stable 10:46 Discharge instructions given to patient, Instructed on discharge instructions, follow up and referral plans. medication usage, Demonstrated understanding of instructions, follow-up care, medications, Prescriptions given X 1. 10:46 Patient left the ED. jl7 Signatures: Dispatcher [employer] Kary Cat mr Jim Sanchez, MORENO RN jl7 Jarrod Alberto DO DO ms3
--- NOTE | 2021-10-22 10:17 | EDPHYS ---
Physician Documentation [facility] Name: Kary Lance Age: 76 yrs Sex: Female : 1945 Arrival Date: 10/22/2021 Time: 07:19 Bed Waiting Private MD: Delio Fernandez V ED Physician Jarrod Alberto HPI: 10/22 08:39 This 76 yrs old Female presents to ER via Ambulatory with complaints of Fall Injury. ms3 08:39 Details of fall: The patient fell from an upright position, while standing. Onset: The ms3 symptoms/episode began/occurred just prior to arrival. Associated injuries: The patient sustained injury to the head, injury to the chest, specifically the anterior aspect of right upper chest, pain with breathing, pain with movement, tenderness. Severity of symptoms: At their worst the symptoms were moderate, in the emergency department the symptoms are unchanged. Historical: - Allergies: 07:50 No Known Allergies; jl7 - Home Meds: 07:50 atorvastatin 10 mg Oral tab [Active]; aspirin 81 mg Oral TbEC [Active]; levothyroxine jl7 125 mcg tab 1 tab once daily [Active]; oxybutynin chloride 10mg ER Oral tab 1 tab once daily [Active]; losartan oral [Active]; - PMHx: 07:50 High Cholesterol; Hypertension; overactive bladder; Hypothyroidism; jl7 - PSHx: 07:50 Total abdominal hysterectomy; jl7 - Immunization history:: Client reports receiving the 2nd dose of the Covid vaccine. - Social history:: Smoking status: Patient denies any tobacco usage or history of. ROS: 08:39 Constitutional: Negative for fever, and chills. ENT: Negative for injury, pain, and ms3 discharge, Neck: Negative for injury, pain, and swelling, Cardiovascular: Right sided rib pain, no sob Respiratory: Negative for shortness of breath, cough, wheezing, and pleuritic chest pain, Abdomen/GI: Negative for abdominal pain, nausea, vomiting, diarrhea, and constipation, MS/Extremity: Negative for injury and deformity, Skin: Negative for injury, rash, and discoloration, Neuro: Negative for headache, weakness, numbness, tingling. Psych: Negative for depression, anxiety, suicide ideation, homicidal ideation, and hallucinations. Exam: 08:39 Constitutional: This is a well developed, well nourished patient who is awake, alert, ms3 and in no acute distress. Eyes: Pupils equal round and reactive to light, extra-ocular motions intact. Lids and lashes normal. Conjunctiva and sclera are non-icteric and not injected. Periorbital areas with no swelling, redness, or edema. Neck: Trachea midline, no cervical lymphadenopathy. Supple, full range of motion without nuchal rigidity, or vertebral point tenderness. No Meningismus. Cardiovascular: Regular rate and rhythm with a normal S1 and S2. No gallops, murmurs, or rubs. Normal PMI, no JVD. No pulse deficits. Respiratory: Lungs have equal breath sounds bilaterally, clear to auscultation and percussion. No rales, rhonchi or wheezes noted. No increased work of breathing, no retractions or nasal flaring. Back: No spinal tenderness. No costovertebral tenderness. Full range of motion. Skin: Warm, dry with normal turgor. Normal color with no rashes, no lesions, and no evidence of cellulitis. Psych: Awake, alert, with orientation to person, place and time. Behavior, mood, and affect are within normal limits. 08:39 Chest/axilla: Inspection: normal, Palpation: tenderness, that is moderate, of the anterior aspect of right upper chest. Vital Signs: 07:44 BP 169 / 86; Pulse 51; Resp 17; Temp 97.1; Pulse Ox 100% on R/A; Weight 95.25 kg; jl7 Height 5 ft. 3 in. (160.02 cm); Pain 5/10; 07:44 Body Mass Index 37.20 (95.25 kg, 160.02 cm) jl7 MDM: 08:39 Differential diagnosis: abrasion, closed head injury, contusion, fracture. ms3 10:16 Patient medically screened. ms3 10:16 Data reviewed: vital signs, nurses notes, radiologic studies, and as a result, I will ms3 discharge patient. Data interpreted: Pulse oximetry: on room air is 100 %. Interpretation: normal. Counseling: I had a detailed discussion with the patient and/or guardian regarding: the historical points, exam findings, and any diagnostic results supporting the discharge/admit diagnosis, radiology results, the need for outpatient follow up, to return to the emergency department if symptoms worsen or persist or if there are any questions or concerns that arise at home. ED course: Discussed radiology imagning, PE findings with patient. Patient to follow up with PMD in 2-3 days. Patient understands/ agrees with plan. All questions answered. Return precautions given to include worsening symptoms, or any other concerns. Patient is improved, in NAD, non-toxic appearing, ambulatory in ED, speaking full sentences.. 10/22 07:49 Order name: CT Head C Spine [facility] 10/22 07:49 Order name: XRAY Ribs RIGHT; Complete Time: 09:47 [facility] 10/22 07:53 Order name: Head C Spine Mpr Wo Con; Complete Time: 09:47 EDMS Administered Medications: No medications were administered Disposition Summary: 10/22/21 10:16 Discharge Ordered Location: Home ms3 Condition: Stable ms3 Diagnosis - Fall on same level, unspecified ms3 - contusion face ms3 Followup: ms3 - With: Delio Fernandez MD - When: 2 - 3 days - Reason: Re-evaluation by your physician Discharge Instructions: - Discharge Summary Sheet ms3 - Contusion ms3 Forms: - Medication Reconciliation Form ms3 - Thank You Letter ms3 - Work release form em1 - Antibiotic Education ms3 - Prescription Opioid Use ms3 Prescriptions: - Tylenol-Codeine #3 300 mg-30 mg Oral - take 1 tablet by ORAL route every 6-8 hours for 3 days; 10 tablet; Refills: 0, ms3 Product Selection Permitted Signatures: Dispatcher [employer] Jim Costello RN RN jl7 Jarrod Alberto DO DO ms3
[2021-10-22 10:57] VITALS: BP 169/86; TEMP 97.1; O2SAT 100
== END 2021-10-22 10:46 | disposition home or self-care (01) ==
LOC: ER 07:17
DX: S00.83XA Contusion of other part of head, initial encounter (principal); W18.39XA Other fall on same level, initial encounter; R07.81 Pleurodynia
CPT/HCPCS: 70450; 72125